=== PATIENT | male | born 1980 | race Caucasian/White ===

== ENCOUNTER 2018-04-09 01:05 | Emergency (ER) | payer OTHER, SELFPAY ==
[2018-04-09 01:22] VITALS: BP 138/85; PULSE 79; RESP 17; TEMP 36.6; O2SAT 100; BMI 25.1
[2018-04-09 01:25] LABS: WBC Urine None Seen (0-5/HPF)
--- NOTE | 2018-04-09 01:29 | ED_ITS ---
HPI - Male Genitourinary General Chief complaint: Urogenital-Male Stated complaint: right side low back pain now in abdomen Time Seen by Provider: 04/09/18 01:22 Source: patient Mode of arrival: ambulatory Limitations: no limitations History of Present Illness HPI Narrative: Otherwise healthy 37-year-old male here for evaluation of right- sided flank pain. Patient states he was woken up from his sleep with the right- sided flank pain. No fevers. No history kidney stones. No blood in his urine. States the pain is radiating around to his right lower quadrant. Did have some nausea prior to arrival here. Related Data Allergies Allergy/AdvReac Type Severity Reaction Status Date / Time No Known Drug Allergies Allergy Verified 04/09/18 01:22 Review of Systems Constitutional Denies fever(s) Gastrointestinal Gastrointestinal: Reports abdominal pain, Denies change in stool character, Reports nausea and Reports vomiting Genitourinary Denies difficulty urinating, Reports flank pain, Denies urinary frequency and Denies urinary hesitancy Musculoskeletal Denies myalgias and Denies arthralgias Integumentary/Breasts Denies lesions and Denies rash PFSH Medical History Healthy adult (Acute) Surgical History No pertinent past surgical history (Acute) Social History Smoking Status: Never smoker Exam Initial Vital Signs Initial Vital Signs: Vital Signs Temperature 97.9 F 04/09/18 01:22 Pulse Rate 79 04/09/18 01:22 Respiratory Rate 17 04/09/18 01:22 Blood Pressure 138/85 04/09/18 01:22 Pulse Oximetry 100 04/09/18 01:22 Const General: cooperative, healthy appearing, comfortable, well developed, well groomed and No acute distress Orientation: alert, awake and oriented x3 HENMT Head: normal to inspection and normocephalic GI Inspection: non-distended Palpation: soft, No firm and No tender Back/Spine/Pelvis Back: No CVA tenderness Skin Lesions: no lesions Rashes: no rashes Neuro General: alert, awake and oriented x3 Speech: speech normal Gait: normal gait Extrem General: normal to inspection and capillary refill normal Psych Appearance: grossly normal and well kempt Course Orders Ordered: ED Orders 04/09/18 01:15 Urine Microscopic Stat 04/09/18 01:25 Complete Blood Count AUTO DIFF Stat Comprehensive Metabolic Panel Stat Lipase Stat Partial Thromboplastin Time Stat Prothrombin Time INR Stat 04/09/18 01:41 CT kidney ureter bladder (KUB) Stat Discontinued Medications Hydrocodone Bitart/Acetaminophen (Vicodin Prepack) 1 bottle MISC SEEINSTR ONE Stop: 04/09/18 03:19 Last Admin: 04/09/18 03:25 Dose: 1 bottle Ondansetron HCl (Zofran Odt Prepack) 1 bottle MISC SEEINSTR ONE Stop: 04/09/18 03:19 Last Admin: 04/09/18 03:25 Dose: 1 bottle Vital Signs - 8 hr 04/09/18 01:22 04/09/18 03:32 Temperature 97.9 F 98.1 F Pulse Rate 79 53 L Respiratory Rate 17 18 Blood Pressure 138/85 123/66 Pulse Oximetry 100 98 MDM - Male Genitourinary Lab Data Attestation: I reviewed the patient's lab results. Result diagrams: 04/09/18 01:25 04/09/18 01:25 Lab Results 04/09/18 04/09/18 04/09/18 Range/Units 01:15 01:25 01:25 WBC 7.9 (4.5-11.0) X10^3/uL RBC 4.99 (4.5-5.9) X10^6/uL Hgb 13.4 L (13.5-17.5) g/dL Hct 40.3 L (41-53) % MCV 80.7 (80-100) fL MCH 26.8 (26-34) PG MCHC 33.3 (30-36) % RDW 12.9 (11.6-14.8) % Plt Count 292 (150-400) X10^3/uL Neut % (Auto) 36.8 L (50-75) % Lymph % (Auto) 51.4 H (25-40) % [place] % (Auto) 7.9 (3-14) % Eos % (Auto) 3.5 (2-4) % Baso % (Auto) 0.4 (0-2) % Neut # (Auto) 2900 L (6482-5352) /uL PT 11.3 (10.1-12.7) SECONDS INR 1.1 (0.9-1.3) APTT 32 (26.4-36.2) SECONDS Sodium (137-145) mmol/L Potassium (3.4-5.1) mmol/L Chloride (98-107) mmol/L Carbon Dioxide (22-32) mmol/L BUN (9-20) mg/dL Creatinine (0.66-1.25) mg/dL Estimated GFR (>60) mL/min BUN/Creatinine Ratio (6-22) Glucose (70-100) mg/dL Calcium (8.4-10.2) mg/dL Total Bilirubin (0.2-1.3) mg/dL AST (17-59) IU/L ALT (21-72) IU/L Alkaline Phosphatase (38-126) U/L Total Protein (6.3-8.2) g/dL Albumin (3.5-5.0) g/dL Globulin (1.7-4.1) g/dL Albumin/Globulin Ratio (1.0-2.8) Lipase (23-300) U/L Urine RBC 30-100/hpf H (0-5/HPF) Urine WBC None seen (0-5/HPF) Ur Squamous Epith Cells 0-1 /hpf Urine Bacteria Occasional (0-1) (None) Urine Mucus 1+ H (Negative) Ur Culture Indicated? Cult not indicated Micro UA Comment Not Reportable 04/09/18 Range/Units 01:25 WBC (4.5-11.0) X10^3/uL RBC (4.5-5.9) X10^6/uL Hgb (13.5-17.5) g/dL Hct (41-53) % MCV (80-100) fL MCH (26-34) PG MCHC (30-36) % RDW (11.6-14.8) % Plt Count (150-400) X10^3/uL Neut % (Auto) (50-75) % Lymph % (Auto) (25-40) % [place] % (Auto) (3-14) % Eos % (Auto) (2-4) % Baso % (Auto) (0-2) % Neut # (Auto) (0579-3636) /uL PT (10.1-12.7) SECONDS INR (0.9-1.3) APTT (26.4-36.2) SECONDS Sodium 140 (137-145) mmol/L Potassium 3.8 (3.4-5.1) mmol/L Chloride 101 (98-107) mmol/L Carbon Dioxide 26 (22-32) mmol/L BUN 23 H (9-20) mg/dL Creatinine 1.00 (0.66-1.25) mg/dL Estimated GFR > 60.0 (>60) mL/min BUN/Creatinine Ratio 23.0 H (6-22) Glucose 120 H (70-100) mg/dL Calcium 9.2 (8.4-10.2) mg/dL Total Bilirubin 0.3 (0.2-1.3) mg/dL AST 34 (17-59) IU/L ALT 38 (21-72) IU/L Alkaline Phosphatase 66 (38-126) U/L Total Protein 7.4 (6.3-8.2) g/dL Albumin 4.6 (3.5-5.0) g/dL Globulin 2.8 (1.7-4.1) g/dL Albumin/Globulin Ratio 1.6 (1.0-2.8) Lipase 269 (23-300) U/L Urine RBC (0-5/HPF) Urine WBC (0-5/HPF) Ur Squamous Epith Cells Urine Bacteria (None) Urine Mucus (Negative) Ur Culture Indicated? Micro UA Comment Urine Dip Bedside Urine Glucose Negative Bedside Urine Bilirubin - Negative Bedside Urine Ketone - Negative Urine Specific [place] 1.030 Bedside Urine Occult Blood +++ Bedside Urine pH 6.0 Bedside Urine Protein - Negative Bedside Urine Urobilinogen - Negative Bedside Urine Nitrite - Negative Bedside Urine Leukocytes - Negative Esterase Imaging Data CT scan - abdomen: Radiologist's impression: 2.5 mm right-sided ureteral stone MDM Narrative Medical decision making narrative: Patient declined the offer for pain medication and nausea medication here in the ER. Urine does have blood in the CT scan does show a right-sided renal stone. No signs of infection. Creatinine unremarkable. No fevers. Had no tenderness palpation of his abdomen during my exam. I do suspect that his symptoms are caused by the right-sided ureteral stone. Will send home with a prepack of pain medication and nausea medication. The patient is [employer]. He was informed that he cannot fly until he is cleared by his medical administrator. Patient was given return precautions. He expressed understanding and agreement plan. Discharge Plan Departure Patient Disposition: Home Clinical Impression: Right ureteral calculus Discharge Date/Time: 04/09/18 03:30 Interventions: ED Discharge Assessment Last Done: 04/09/18 03:32 Instructions: Kidney Stones -- Adult Activity Restrictions/Additional Instructions: The medications you were given this evening are as needed for pain and vomiting. You do need to follow-up with your medical administrator. You are down from flying until cleared by your director of medical services. Return to the emergency department for any new symptoms, fevers, inability urinate, inability to tolerate oral intake despite the nausea medication or any other concerning symptoms.
[2018-04-09 01:33] LABS: Bacteria Urine Occasional (0-1)
[2018-04-09 01:34] LABS: Culture Indicated Urine Cult Not Indicated; Mucus Urine 1+ (Negative); RBC Urine 30-100/HPF (0-5/HPF); Squamous Epithelial Cell Urine 0-1 /HPF
--- NOTE | 2018-04-09 01:41 | DI.CT.S_ITS ---
PROCEDURE: CT KIDNEY URETER BLADDER (KUB) INDICATIONS: Right-sided pain concern for stone TECHNIQUE: Noncontrast 5 mm thick sections acquired from the diaphragms to the symphysis. 5 mm thick coronal and sagittal reformats were then performed. For radiation dose reduction, the following was used: automated exposure control, adjustment of mA and/or kV according to patient size. COMPARISON: None. FINDINGS: Image quality: Excellent. Lung bases: Lung bases are clear. Heart size is normal. Urinary system: Both kidneys are normal in size. A 3 mm stone is noted in the distal right ureter causing mild right-sided hydroureteronephrosis. There is a 1-2 mm nonobstructing stone in the midpole of the right kidney. No left-sided renal stones or hydronephrosis. Bladder wall thickness is normal; no calcified bladder stones. Other solid organs: Liver is normal in size. Gallbladder is within normal limits. Pancreas is normal in contours. Spleen is normal in size. No adrenal nodules. Peritoneum and bowel: Unenhanced bowel loops demonstrate normal wall thickness and caliber. No free fluid or air. The appendix is normal. Nodes and vessels: No retroperitoneal or mesenteric adenopathy by size criteria. Aorta and inferior vena cava are normal in caliber. Abdominal wall: No ventral hernias. Pelvis: No free pelvic fluid. No inguinal hernias or adenopathy. Bones: No suspicious bony lesions. No vertebral body compression fractures. IMPRESSION: 1. 3 mm distal right ureteral stone causing mild right-sided hydronephrosis. 2. 1-2 mm nonobstructing right renal cortical stone. Dictated by: Negra Jackson MD, PhD on 04/09/2018 at 7:59 Approved by: Negra Jackson MD, PhD on 04/09/2018 at 8:02
[2018-04-09 01:42] LABS: INR 1.1 (0.9-1.3); Prothrombin Time 11.3 SECONDS (10.1-12.7)
[2018-04-09 01:43] LABS: Add Manual Diff / Slide Review NO; Basophils Percent Auto 0.4 % (0-2); Eosinophils Percent Auto 3.5 % (2-4); Hematocrit 40.3 % (41-53); Hemoglobin 13.4 g/dL (13.5-17.5); Lymphocytes Percent Auto 51.4 % (25-40); Mean Corpuscular HGB Conc 33.3 % (30-36); Mean Corpuscular Hemoglobin 26.8 PG (26-34); Mean Corpuscular Volume 80.7 fL (80-100); Monocytes Percent Auto 7.9 % (3-14); Neutrophils Absolute Auto 2900 /uL (3000-5900); Neutrophils Percent Auto 36.8 % (50-75); Platelet Count 292 X10^3/uL (150-400); Red Blood Cell Count 4.99 X10^6/uL (4.5-5.9); Red Cell Distribution Width 12.9 % (11.6-14.8); White Blood Cell Count 7.9 X10^3/uL (4.5-11.0)
[2018-04-09 01:45] LABS: PTT Partial Thromboplastin Tim 32 SECONDS (26.4-36.2)
[2018-04-09 01:46] LABS: Alanine Aminotransferase 38 IU/L (21-72); Albumin 4.6 g/dL (3.5-5.0); Albumin Globulin Ratio 1.6 (1.0-2.8); Alkaline Phosphatase 66 U/L (38-126); Aspartate Aminotransferase 34 IU/L (17-59); Bilirubin Total 0.3 mg/dL (0.2-1.3); Blood Urea Nitrogen 23 mg/dL (9-20); Calcium 9.2 mg/dL (8.4-10.2); Carbon Dioxide 26 mmol/L (22-32); Chloride 101 mmol/L (98-107); Estimated Glomerular Filt Rate > 60.0 mL/min (>60); Globulin 2.8 g/dL (1.7-4.1); Glucose 120 mg/dL (70-100); HEMOLYSIS < 15 (0-50); Lipase 269 U/L (23-300); Potassium 3.8 mmol/L (3.4-5.1); Sodium 140 mmol/L (137-145); Total Protein 7.4 g/dL (6.3-8.2)
[2018-04-09] MEDS: HYDROCODONE/ACET 5/325 PREPACK 1 BOTTLE MISC (03:25)
[2018-04-09] MEDS: ONDANSETRON 4 MG ODT PREPACK 1 BOTTLE MISC (03:25)
[2018-04-09 03:32] VITALS: BP 123/66; PULSE 53; RESP 18; TEMP 36.7; O2SAT 98
--- NOTE | 2018-04-10 15:19 | PC.NURSE ---
call back, no answer
== END 2018-04-09 03:30 | disposition home or self-care (01) ==
PROVIDERS: Emergency Provider Emergency Medicine
DX: N20.1 Calculus of ureter (principal)
CPT/HCPCS: 36591; 74176; 80053; 81003; 81015; 83690; 85025; 85610; 85730; 99282; 99284

== ENCOUNTER 2021-09-10 17:30 | Emergency (ER) | payer OTHER, SELFPAY ==
[2021-09-10 17:38] VITALS: BP 155/94; PULSE 64; RESP 18; TEMP 36.7; O2SAT 97; BMI 25.8
[2021-09-10 20:41] VITALS: BP 140/84; PULSE 60; RESP 16; TEMP 36.8; O2SAT 100
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
[2021-09-10] MEDS: PROPARACAINE 0.5% OPHTH SOL 1 DROPS EYE-RIGHT (23:14)
[2021-09-10] MEDS: FLUORESCEIN 1 MG STRIP EYE-RIGHT (23:14)
[2021-09-11 00:01] VITALS: BP 145/92; PULSE 61; O2SAT 94
== END 2021-09-11 00:10 | disposition home or self-care (01) ==
PROVIDERS: Emergency Provider Emergency Medicine; PCP Family Medicine
DX: H53.8 Other visual disturbances (principal); H53.2 Diplopia
CPT/HCPCS: 70450; 99282; 99284

== ENCOUNTER 2024-09-17 14:14 | Emergency (ER) | payer OTHER, SELFPAY ==
[2024-09-17 14:24] VITALS: BP 136/85; PULSE 72; RESP 16; TEMP 36.3; O2SAT 97; BMI 26.5
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
[2024-09-17] MEDS: HYDROCODONE/ACET 5/325 TABLET 1 TAB PO (16:43)
[2024-09-17] MEDS: TET,DIPH,PERTUSS(ACELL),VAC/PF 0.5 ML SYRINGE IM (17:28)
[2024-09-17 18:28] VITALS: BP 153/67; PULSE 83; RESP 18; O2SAT 99
[2024-09-17] MEDS: HYDROCODONE/ACET 5/325 PREPACK 1 BOTTLE MISC (20:16)
== END 2024-09-17 18:30 | disposition home or self-care (01) ==
PROVIDERS: Emergency Provider Physician Assistant; PCP Family Medicine
DX: S42.022A Displaced fracture of shaft of left clavicle, initial encounter for closed fracture (principal); S20.419A Abrasion of unspecified back wall of thorax, initial encounter; M25.552 Pain in left hip; S30.811A Abrasion of abdominal wall, initial encounter; S40.812A Abrasion of left upper arm, initial encounter; S40.811A Abrasion of right upper arm, initial encounter; S20.319A Abrasion of unspecified front wall of thorax, initial encounter; R07.89 Other chest pain; Y93.55 Activity, bike riding; X58.XXXA Exposure to other specified factors, initial encounter; Z23 Encounter for immunization
CPT/HCPCS: 71046; 73000; 73502; 90471; 99284; 90715